=== PATIENT | male | born 1965 | race Two or more races ===

== ENCOUNTER 2021-09-15 14:47 | Emergency (ER) | payer OTHER ==
[~2021-09-15] VITALS: Ht 177.8 cm; Wt 81.6 kg
[2021-09-15] MEDS ORDERED: SYNTHROID100 MCG PO (15:14)
[2021-09-15] MEDS ORDERED: VALSARTAN320 MG PO (15:15)
[2021-09-15] MEDS ORDERED: TRILIPIX135 MG PO (15:16)
[2021-09-15] MEDS ORDERED: NORVASC5 MG PO (15:16)
[2021-09-15] MEDS ORDERED: LIPITOR20 MG PO (15:16)
[2021-09-15] MEDS ORDERED: GLUMETZA500 MG PO (15:17)
[2021-09-15] MEDS ORDERED: LOSARTAN-HCTZ1 EACH PO (15:17)
[2021-09-15] MEDS ORDERED: AMBIEN10 MG PO (15:18)
[2021-09-15] MEDS ORDERED: CLONAZEPAM0.5 M1 PO (15:18)
[2021-09-15] MEDS ORDERED: PROZAC20 MG PO (15:18)
== END 2021-09-15 18:45 | disposition home or self-care (01) ==
LOC: ER 14:47
DX: K80.20 Calculus of gallbladder without cholecystitis without obstruction (principal); R10.11 Right upper quadrant pain